=== PATIENT | male | born 1995 | race African-American/Black ===

== ENCOUNTER 2021-08-20 04:36 | Emergency (ER) | payer BC ==
[2021-08-20] MEDS ORDERED: Dexamethasone 10 MG/ML VIAL ONE (05:12)
== END 2021-08-20 05:20 | disposition home or self-care (01) ==
LOC: ERS 04:36
DX: T78.40XA Allergy, unspecified, initial encounter (principal)
CPT/HCPCS: 99283; J1100

== ENCOUNTER 2024-12-23 18:26 | Emergency (ER) | payer SELFPAY | END 2024-12-23 18:45 | disposition home or self-care (01) | LOC: ERS 18:26 | DX: Z00.00 Encounter for general adult medical examination without abnormal findings (principal) ==